=== PATIENT | female | born 1995 | race Caucasian/White ===

== ENCOUNTER 2017-01-21 11:08 | Emergency (ER) | payer SELFPAY ==
--- NOTE | 2017-01-21 11:17 | UC ---
Head Injury HPI - HPI Summary HPI Summary: she was at work when a rock fell off a fish tank and hit her on the top of the head. she remembers the impact. She has felt dizzy since but still focused and no obvious imbalance. - History Of Current Complaint Stated Complaint: CONCUSSION Time Seen by Provider: 01/21/17 11:09 Hx Obtained From: Patient ?: No Onset/Duration: Sudden Onset, Lasting Minutes Severity Currently: Moderate Severity Initially: Moderate Character: Dull Aggravating Factor(s): Nothing Alleviating Factor(s): Nothing Associated Signs And Symptoms: Positive: Negative PMH/Surg Hx/FS Hx/Imm Hx Previously Healthy: Yes - Family History Known Family History: Positive: Other - no related family history. - Social History Occupation: Employed Full-time Substance Use Type: None Have You Smoked in the Last Year: No Review of Systems Neurological: Headache All Other Systems Reviewed And Are Negative: Yes Physical Exam Triage Information Reviewed: Yes Appearance: Well-Appearing, No Pain Distress, Well-Nourished Vital Signs Reviewed: Yes ENT: Positive: Pharynx normal Neck exam: Normal Neck: Positive: Supple, Nontender, No Lymphadenopathy Respiratory: Positive: No respiratory distress, No accessory muscle use Cardiovascular: Positive: Brisk Capillary Refill Abdominal Exam: Normal Abdomen Description: Positive: Nontender, Soft Musculoskeletal: Positive: Strength Intact, ROM Intact, No Edema Neurological: Positive: Alert, Muscle Tone Normal. Negative: Fatigued Psychological Exam: Normal Skin Exam: Normal Skin: Negative: rashes, breakdown Head Injury Course/Dx - Differential Dx/Diagnosis Provider Diagnoses: closed head injury. Discharge - Discharge Plan Condition: Good Disposition: HOME Patient Education Materials: Head Injury (ED) Additional Instructions: return here for any worsening. tylenol and motrin for headache.
[2017-01-21 11:19] VITALS: BP 138/71
== END 2017-01-21 11:35 | disposition home or self-care (01) ==
LOC: UCCORT 11:08
DX: S09.90XA Unspecified injury of head, initial encounter (principal); W20.8XXA Other cause of strike by thrown, projected or falling object, initial encounter; Y92.89 Other specified places as the place of occurrence of the external cause; Y99.0 Civilian activity done for income or pay
CPT/HCPCS: 99211; G0463

== ENCOUNTER 2019-02-27 18:59 | Emergency (ER) | payer OTHER ==
[2019-02-27 19:26] VITALS: BP 116/66
--- NOTE | 2019-02-27 19:31 | UC ---
Hand/Wrist HPI - HPI Summary HPI Summary: 23-year-old female who caught her right hand in a door this evening complaining of pain to the right middle finger. - History Of Current Complaint Chief Complaint: UCUpperExtremity Stated Complaint: RIGHT MIDDLE FINGER INJURY Time Seen by Provider: 02/27/19 19:06 Hx Obtained From: Patient Hx Last Menstrual Period: nuvaring ?: No Onset/Duration: Sudden Onset Severity Initially: Mild Severity Currently: Mild Pain Intensity: 4 Character Of Pain: Dull, Aching Aggravating Factor(s): Flexion, Extension Alleviating Factor(s): Rest Associated Signs And Symptoms: Positive: Swelling - Very minimal swelling to right middle finger. - Allergies/Home Medications Allergies/Adverse Reactions: Allergies Allergy/AdvReac Type Severity Reaction Status Date / Time No Known Allergies Allergy Verified 02/27/19 19:11 Home Medications: Home Medications Cholecalciferol (Vitamin D3) [D 5000] 5,000 unit PO DAILY 02/27/19 [History Confirmed 02/27/19] Cyanocobalamin (Vitamin B-12) [B-12] 1,000 mcg PO Q8H PRN 02/27/19 [History Confirmed 02/27/19] Etonogest/Eth.estradiol (Nf) [Nuvaring Vaginal Ring] 1 each VAGINAL .SEE COMMENTS 02/27/19 [History Confirmed 02/27/19] Folic Acid 1 mg PO DAILY 02/27/19 [History Confirmed 02/27/19] Metformin HCl 500 - 1,000 mg PO DAILY 02/27/19 [History Confirmed 02/27/19] Methotrexate TAB* 7.5 mg PO BID 02/27/19 [History Confirmed 02/27/19] [place]-3 Fatty Acids/Fish Oil [[place] 3] 1 cap PO BID 02/27/19 [History Confirmed 02/27/19] PMH/Surg Hx/FS Hx/Imm Hx Previously Healthy: Yes - Surgical History Surgical History: Yes Surgery Procedure, Year, and Place: Cyst removed from left ovary. right oopherectomy. D&C. T&A - Family History Known Family History: Positive: Other - no related family history. - Social History Alcohol Use: Weekly Substance Use Type: None Smoking Status (MU): Current Every Day Smoker Type: Cigarettes Amount Used/How Often: 3-4 cigs/day Length of Time of Smoking/Using Tobacco: 10 yrs Have You Smoked in the Last Year: Yes - Immunization History Most Recent Influenza Vaccination: Not the 2016/2017 Season Review of Systems All Other Systems Reviewed And Are Negative: Yes Skin: Positive: Other - Very minimal swelling to right middle finger. Musculoskeletal: Positive: Other: - Complains of pain to the midportion of right middle finger. Is Patient Immunocompromised?: No Physical Exam Triage Information Reviewed: Yes Appearance: Well-Appearing, No Pain Distress, Well-Nourished Vital Signs: Initial Vital Signs Temp 98.8 F 02/27/19 19:19 Pulse 92 02/27/19 19:19 Resp 15 02/27/19 19:19 BP 116/66 02/27/19 19:19 Pulse Ox 99 02/27/19 19:19 Vital Signs Reviewed: Yes Musculoskeletal: Positive: Strength Intact, ROM Limited @ - Limited flexion and extension due to pain Neurological: Positive: Alert, Muscle Tone Normal Psychological Exam: Normal Skin: Positive: Other - See above notes. Hand/Wrist Course/Dx - Course Course Of Treatment: Right hand x-ray: Negative as read by myself. Kendell tape was applied to the fourth and third finger. The patient can elevate and follow-up with an orthopedist as needed. Tylenol or Motrin for pain. - Differential Dx/Diagnosis Provider Diagnosis: Contusion of right middle finger Discharge ED - Sign-Out/Discharge Documenting (check all that apply): Patient Departure All imaging exams completed and their final reports reviewed: No - Discharge Plan Condition: Good Disposition: HOME Patient Education Materials: Contusion in Adults (ED) Referrals: Cathie Macedo MD [Primary Care Provider] - Waldo Sanchez MD [Medical Doctor] - Additional Instructions: Tylenol every 4 hours and Motrin every 8 hours for pain. Follow-up with the orthopedist if any further concerns over the next 3 or 4 days. Keep the kendell tape on for comfort and you may remove it at any time. - Billing Disposition and Condition Condition: GOOD Disposition: Home - Attestation Statements Provider Attestation: I was available for consult. This patient was seen by the [facility]. The patient was not presented to , seen by or examined by or -Kunal Olivares MD
--- NOTE | 2019-02-28 08:51 | ED ---
Progress - Progress Note Progress Note: Informed by Dr Sweet that there is probable displaced fx of third distal phalanx. Please call and inform pt and to follow up with ortho/hand surgeon tomorrow for further management. Course/Dx - Diagnoses Provider Diagnoses: Contusion of right middle finger Discharge ED - Sign-Out/Discharge Documenting (check all that apply): Post-Discharge Follow Up - SEE official XR report All imaging exams completed and their final reports reviewed: No - Discharge Plan Condition: Good Disposition: HOME Patient Education Materials: Contusion in Adults (ED) Referrals: Cathie Macedo MD [Primary Care Provider] - Waldo Sanchez MD [Medical Doctor] - Additional Instructions: Tylenol every 4 hours and Motrin every 8 hours for pain. Follow-up with the orthopedist if any further concerns over the next 3 or 4 days. Keep the kendell tape on for comfort and you may remove it at any time. - Billing Disposition and Condition Condition: GOOD Disposition: Home
== END 2019-02-27 19:53 | disposition home or self-care (01) ==
LOC: UCCORT 18:59
DX: S60.031A Contusion of right middle finger without damage to nail, initial encounter (principal); W23.0XXA Caught, crushed, jammed, or pinched between moving objects, initial encounter; Y92.9 Unspecified place or not applicable; F17.210 Nicotine dependence, cigarettes, uncomplicated
CPT/HCPCS: 99212; G0463